=== PATIENT | male | born 2000 | race African-American/Black ===

== ENCOUNTER 2024-10-28 12:33 | Emergency (ER) | payer SELFPAY ==
[~2024-10-28] VITALS: Ht 182.9 cm; Wt 64.0 kg
[2024-10-28 12:35] VITALS: BP 104/41; PULSE 50; RESP 16; TEMP 97.9; O2SAT 99
[2024-10-28] MEDS: SULFAMETHOX/TRIMETH DS 800-160 MG/TABLET PO ONE (13:54)
[2024-10-28] MEDS: CEPHALEXIN MONOHYDRATE 500 MG CAPSULE PO ONE (13:54)
[2024-10-28] MEDS ORDERED: CEPH-558 PO (13:56)
[2024-10-28] MEDS ORDERED: SULF-261 PO (13:56)
== END 2024-10-28 13:58 | disposition home or self-care (01) ==
LOC: EMS 12:38
DX: L03.112 Cellulitis of left axilla (principal)
CPT/HCPCS: 99284; Z7502; Z7610